=== PATIENT | female | born 1985 | race Caucasian/White ===

== ENCOUNTER → 2019-06-30 | Outpatient (CLI) | payer BC ==
[2017-08-30 19:19] VITALS: BMI 24.2
[~2019-06-30] MED LIST: ACET-1718 PO; CALC-515 PO; ENOX60DI8 SQ; HEPA100D89; IBUP800T37 PO; LOR5/325 PO; ONDA8TAB98 PO
== END ==
LOC: LAB 16:04
PROVIDERS: ATTEND Family Medicine
DX: Z32.00 Encounter for pregnancy test, result unknown (principal); N92.0 Excessive and frequent menstruation with regular cycle; R07.9 Chest pain, unspecified
CPT/HCPCS: 36415; 81025; 84443; 85027; 85379